=== PATIENT | male | born 2000 | race Caucasian/White ===

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

== ENCOUNTER 2018-02-12 09:55 | Inpatient (IN) | payer OTHER ==
[2018-02-12] MEDS ORDERED: Clindamycin 600 MG IVPREMIX(* 600 MG/50 ML SDV IV ONE (10:34)
[2018-02-12 10:43] LABS: Hematocrit 47 % (42-52); Hemoglobin 16.2 g/dl (14.0-18.0); Mean Corpuscular HGB Conc 35 g/dl (31-36); Mean Corpuscular Hemoglobin 31 pg (27-31); Mean Corpuscular Volume 89 fL (80-94); Mean Platelet Volume 8.4 um3 (7.4-10.4); Platelet Count 198 10^3/ul (150-450); Red Blood Count 5.24 10^6/ul (4.0-5.4); Red Cell Distribution Width 13 % (10.5-15); White Blood Count 17.2 10^3/ul (3.5-10.8)
--- NOTE | 2018-02-12 10:43 | ED ---
Upper Extremity Pain - HPI Summary HPI Summary: Patient is a 17-year-old male with a history of left olecranon bursitis with surrounding cellulitis. He is right-hand dominant and sustained left elbow cellulitis 6 weeks ago and was seen in the ED. He was started on Bactrim however, still needed to come in for one evening of antibiotics after it appeared to be spreading. He was seen by Dr. Bermudez, orthopedics. Today he arrives with right elbow pain and swelling, erythema and warmth. Low-grade fever last evening, but nothing on arrival today. He has been taking ibuprofen and Tylenol intermittently. Denies any chest pain, shortness of breath, sweats or chills. - History of Current Complaint Chief Complaint: EDRashSkinAbscess Stated Complaint: INFECTION ON RT ELBOW Time Seen by Provider: 02/12/18 09:59 Hx Obtained From: Patient Onset/Duration: Started Hours Ago Timing: Constant Severity Initially: Moderate Severity Currently: Moderate Pain Location: Elbow Character: Aching Aggravating Factor(s): Movement, Lifting, Flexion Alleviating Factor(s): Rest, Ice Related History: Similar Episode/Dx As - Left olecranon bursitis, Dominant Hand Right - Risk Factors Non-Orthopedic Risk Factor: Negative DVT Risk Factors: Negative Septic Arthritis Risk Factor: Negative Compartment Syndrome Risk Factors: Pain - Allergies/Home Medications Allergies/Adverse Reactions: Allergies Allergy/AdvReac Type Severity Reaction Status Date / Time No Known Allergies Allergy Verified 12/24/17 12:29 PMH/Surg Hx/FS Hx/Imm Hx Previously Healthy: Yes Endocrine/Hematology History: Denies: Hx Diabetes Cardiovascular History: Denies: Hx Hypertension Respiratory History: Denies: Hx Asthma Sensory History: Denies: Hx Contacts or Glasses, Hx Hearing Aid Opthamlomology History: Denies: Hx Contacts or Glasses - Immunization History Hx Pertussis Vaccination: No Immunizations Up to Date: Unable to Obtain/Confirm Infectious Disease History: No Infectious Disease History: Denies: Hx of Known/Suspected MRSA, Traveled Outside the [place] in Last 30 Days - Family History Known Family History: Positive: None - Social History Occupation: Unemployed, Student Alcohol Use: None Hx Substance Use: No Substance Use Type: Reports: None Hx Tobacco Use: No Smoking Status (MU): Never Smoked Tobacco Review of Systems Constitutional: Negative Negative: Fever, Chills, Fatigue, Skin Diaphoresis Eyes: Negative Cardiovascular: Negative Negative: Abdominal Pain, Vomiting, Diarrhea Genitourinary: Negative Positive: no symptoms reported, see HPI Positive: Arthralgia, Myalgia Skin: Negative Positive: Other - erythema and warmth with possible small bursa with no obvious effusion Neurological: Negative All Other Systems Reviewed And Are Negative: Yes Physical Exam Triage Information Reviewed: Yes Vital Signs On Initial Exam: Initial Vitals Temp Pulse Resp BP Pulse Ox 98.8 F 80 20 128/77 100 02/12/18 10:13 02/12/18 10:13 02/12/18 10:13 02/12/18 10:13 02/12/18 10:13 Vital Signs Reviewed: Yes Appearance: Positive: Well-Appearing, Well-Nourished Skin: Positive: Warm, Skin Color Reflects Adequate Perfusion, Other - Small bursa with no effusion Head/Face: Positive: Normal Head/Face Inspection Eyes: Positive: EOMI, EUGENIO Neck: Positive: Supple, No Lymphadenopathy Respiratory/Lung Sounds: Positive: Clear to Auscultation, Breath Sounds Present Cardiovascular: Positive: RRR, Pulses are Symmetrical in both Upper and Lower Extremities Musculoskeletal: Positive: Other - No limitations with flexion and extension of the elbow wrist or hand. 2+ radial pulse. Small bursa present. There is no evidence of an open wound, erythema and warmth surrounding the elbow Neurological: Positive: Speech Normal Psychiatric: Positive: Normal, Affect/Mood Appropriate AVPU Assessment: Alert Diagnostics - Vital Signs Vital Signs Temp Pulse Resp BP Pulse Ox 02/12/18 10:13 98.8 F 80 20 128/77 100 - Laboratory Result Diagrams: 02/12/18 10:29 02/12/18 10:29 Lab Statement: Any lab studies that have been ordered have been reviewed, and results considered in the medical decision making process. Course/Dx - Course Course Of Treatment: 2+ radial pulse. He is sensate to deep palpation, but not to light touch. There is no effusion, but a small bursa present. There is no open wound. He is able to flex and extend his tendons at the elbow wrist and hand. Labs obtained to assess for ESR, CRP and white count. Full range of motion without pain. I have offered to call Dr. Doherty to explain the new onset of symptoms. Clindamycin 600mg IV and in the ED. There is no streaking. He responded well to Bactrim upon last olecranon bursitis/cellulitis to the left elbow. I have called Dr. Jimenez who agrees to admit to her service. She is also recommended adding vancomycin. I have added vancomycin 1000 mg IV. Blood cultures obtained and are pending. Patient and swimming coach or instructor made aware and they' re okay with this plan. - Diagnoses Differential Diagnosis/HQI/PQRI: Positive: Bursitis Provider Diagnoses: Cellulitis of elbow, Olecranon bursitis, right elbow Discharge - Sign-Out/Discharge Documenting (check all that apply): Discharge/Admit/Transfer - Discharge Plan Condition: Stable Disposition: ADMITTED TO [facility] Referrals: [facility] [place] - Marcel SINGH [Primary Care Provider] - - Billing Disposition and Condition Condition: STABLE [place]position[place] [facility] [place] - Images Full Body (No Head): 1 - Erythema, warmth with small bursa
[2018-02-12 11:33] LABS: ABS Basophils 0.1 10^3/ul (0-0.2); ABS Eosinophils 0.1 10^3/ul (0-0.6); ABS Lymphocytes 0.9 10^3/ul (1.0-4.8); ABS Monocytes 1.1 10^3/ul (0-0.8); ABS Nucleated RBC 0 10^3/ul; Eosinophil % 0.4 % (0-6); Lymphocyte % 5.2 % (25-47); Nucleated Red Blood Cells % 0
[2018-02-12] MEDS ORDERED: Vancomycin(*) 1,000 MG in NS 0.9% 250 ML* 250 ML IVPB ONE (11:45)
[2018-02-12] MEDS ORDERED: oxyCODONE/Acetamin 5/325 MG* TAB PO PRN (12:50)
[2018-02-12] MEDS ORDERED: Morphine VIAL* 4 MG/ML VIAL (1 ml vial) IV PRN (12:50)
[2018-02-12] MEDS ORDERED: Ondansetron TAB* 4 MG PO PRN (12:57)
[2018-02-12] MEDS ORDERED: Ondansetron INJ* 2 MG/ML VIAL IV PRN (12:57)
[2018-02-12] MEDS ORDERED: diPHENhydraMINE IV* 50 MG/ML 1 ml VIAL (BENADRYL) IV PRN (12:57)
[2018-02-12] MEDS: Acetaminophen TAB* 325 MG PO PRN ×2 (14:16→19:57)
--- NOTE | 2018-02-12 14:36 | HP ---
H&P (Free Text) History and Physical: Attending Provider: Dr. 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 He had fever (tactile) and chills overnight, treated with tylenol. The patient denies trauma, injury, IVDU. His pain is a 1 /10 at rest and a 3-4/10 with full movement of the elbow. He denies any pain in the elbow joint itself. He believes the swelling and redness has worsened from last night. The patient was recent admitted 12/24/2017 with similar presentation, however to the L elbow at that time. He was treated conservatively with Bactrim, which was completed 01/04/2108. He did not have any further symptoms since that time and recent underwent a labral repair on the left shoulder at [facility] on 2017. Past Medical History: L shoulder labral repair L elbow olecranon bursitis, infecctious 12/2017, completed Bactrim 01/03/2018 Past Surgical History: 01/31/2018- Labral Repair L shoulder by DR. 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 Denies TOB, ETOH use, Denies IVDU or injections of any kind Review of Symptoms: + fever, chills last night starting at 9AM. Mild pain with movement of R elbow , recent surgery L shoulder. All other reviewed systems negative. Physical Exam: Vital Signs Temp 98.8 F 02/12/18 10:13 Pulse 80 02/12/18 10:13 Resp 20 02/12/18 10:13 BP 128/77 02/12/18 10:13 Pulse Ox 100 02/12/18 10:13 General: Well appearing, NAD, AO, resting comfortably in bed HEENT- normocephalic, atraumatic. MSK- R UE; R elbow with full pronation, supination, flexion, extension when compared to L. Good girp strength. Sensation intact and equal throughout R arm. No pain with R wrist, fingers, shoulder, no swelling/ erythema. R elbow with mild to moderate fluctuant swelling at olecranon with TTP, 4/10, with surrounds area of erythema measuring ~ 9cm x 5cm. radial, ulnar pulses 2+. Small, superficial abrasion noted posterior elbow, no drainage noted, healing well. LUE- Full ROm without pain of L elbow, no erythema, swelling, warmth. non- tender. L shoulder ROM not tested fully due to recent surgery, however non- tender to palpation, no pain with gentle pendulum motion, incision c/d/i. LE b/l- no TTP over ankle, hip, knee b/l with no swelling noted, full ROM. Diagnostic studies/ Lab Data: Laboratory Results - last 24 hr 02/12/18 02/12/18 10:29 10:29 WBC 17.2 H RBC 5.24 Hgb 16.2 Hct 47 MCV 89 MCH 31 MCHC 35 RDW 13 Plt Count 198 MPV 8.4 Neut % (Auto) 87.2 H Lymph % (Auto) 5.2 L Camp % (Auto) 6.6 Eos % (Auto) 0.4 Baso % (Auto) 0.6 Absolute Neuts (auto) 15.0 H Absolute Lymphs (auto) 0.9 L Absolute Monos (auto) 1.1 H Absolute Eos (auto) 0.1 Absolute Basos (auto) 0.1 Absolute Nucleated RBC 0 Nucleated RBC % 0 ESR 3 Sodium 137 L Potassium 4.1 Chloride 100 L Carbon Dioxide 28 Anion Gap 9 BUN 18 Creatinine 1.20 H Est GFR ( Amer) 100.3 Est GFR (Non-Af Amer) 78.0 BUN/Creatinine Ratio 15.0 Glucose 123 H Calcium 10.3 Total Bilirubin 3.80 H AST 23 ALT 18 Alkaline Phosphatase 58 C-Reactive Protein 21.47 H Total Protein 7.2 Albumin 5.0 Globulin 2.2 Albumin/Globulin Ratio 2.3 Assessment: Olecranon Bursitis, Infectious R elbow without known source Plan: - Admit for IV antibiotics- Currently Vancomycin, clindamycin. Call placed to ID. - Elevated Creatinine- IVF, continue to monitor. Improved from prior admission - Elevated Bilirubin- Will curbside hospitalists - Repeat labs, CRP in AM - Admit to Ortho under Dr. Doherty. - Pain Control- Percocet, Tylenol - Blood cultures taken, await results Active Medications Generic Name Dose Route Start Last Admin Trade Name Freq PRN Reason Stop Dose Admin Acetaminophen 650 mg 02/12/18 12:50 02/12/18 14:16 Tylenol Tab* PO 650 mg Q6H PRN Administration pain, fever Diphenhydramine HCl 25 mg 02/12/18 12:57 Benadryl Iv* IV Q6H PRN PRURITIS Dextrose/Sodium Chloride 1,000 mls @ 125 mls/hr 02/12/18 13:00 D5w 1/2 Ns 1000 Ml Bag* IV PER RATE MASON Morphine Sulfate 4 mg 02/12/18 12:50 Morphine Inj (Syringe)* IV Q2H PRN PAIN - BREAKTHROUGH Ondansetron HCl 4 mg 02/12/18 12:57 Zofran Inj* IV Q6H PRN NAUSEA Ondansetron HCl 4 mg 02/12/18 12:57 Zofran Tab* PO Q6H PRN nausea, vomiting Oxycodone/Acetaminophen 1 tab 02/12/18 12:50 Percocet 5/325 Tab* PO Q3H PRN PAIN - MODERATE TO SEVERE
[2018-02-12] MEDS: D5W 1/2 NS 1000 ML BAG* 1,000 ML IV SCH ×3 (14:45→23:10)
--- NOTE | 2018-02-12 16:24 | PN ---
Progress Note - Progress Note Date of Service: 02/12/18 Note: Pt seen an examined. Feeling feverish. Pain controlled. Will monitor closely. Please see full dictated H and P which is pending.
--- NOTE | 2018-02-12 21:25 | HP ---
CC: Dr. Marshall; [facility]* HISTORY AND PHYSICAL: DATE OF ADMISSION: 02/12/18 ATTENDING PHYSICIAN: Matthew Doherty MD CHIEF COMPLAINT: Right elbow pain. 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 He has a recent history approximately 6 weeks ago of left elbow cellulitis and olecranon bursitis, possible infected bursitis. He was admitted overnight due to increasing worsening symptoms. He is having same issue on the right side. He feels he has been having fevers, chills, significant pain. He has swelling and erythema. He was seen in the [employer] training room by the family medicine doctors, who were concerned that he has persistent pain and worsening symptoms. He also has a recent history of having a left arthroscopic labral repair done at another facility. He has been in the ER. He has had a dose of vanco as well as clindamycin. Currently, the pain is still quite uncomfortable for him. He has noticed a lot of swelling in the elbow, is having chills and now he is feeling febrile. He denies numbness or tingling. He does report fevers and chills. No catching or locking, but he has pain with range of motion in the elbow. PAST MEDICAL HISTORY: Negative. PAST SURGICAL HISTORY: Left shoulder arthroscopic labral repair. MEDICATIONS: Ibuprofen. He currently is taking vanco and clindamycin. ALLERGIES: NKDA. FAMILY HISTORY: Negative. SOCIAL HISTORY: He is right hand dominant. 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 He denies tobacco and denies alcohol. REVIEW OF SYSTEMS: A 14-point review of systems is significant for fevers, chills, pain with range of motion of the elbow, recent surgery in the left shoulder. No chest pain, shortness of breath. Remainder of systems are negative. PHYSICAL EXAMINATION GENERAL: He is in no acute distress. He is well developed, well nourished. He is alert and oriented x3. Pleasant mood and normal affect. Sitting comfortably in the bed. VITAL SIGNS: Temperature of 102.2, pulse of 99, oxygen 99% on room air, blood pressure is 121/66. HEENT: EOMI. CHEST: Clear to auscultation. HEART: Regular rate and rhythm. EXTREMITIES: Examination of the right elbow demonstrates marked area of erythema. He is able to flex and extend his elbow without much difficulty and some discomfort. He does have fluid collection about the posterior aspect of the olecranon. He is sensate to light touch grossly distally, brisk cap refill , 2+ radial pulse. Examination of the left shoulder demonstrates skin is intact. There is a well healed incision. There is no erythema or warmth. DIAGNOSTIC STUDIES/LAB DATA: Labs reviewed at the time of admission demonstrates white blood cell count of 17.2, hematocrit of 47, platelet count of 198. ESR of 3. Potassium 4.0, sodium of 137, chloride of 100, carbon dioxide 28, BUN of 18, creatinine of 1.2, glucose of 123, calcium 10.3. CRP is 21.47. ASSESSMENT AND PLAN: He has right elbow cellulitis and olecranon bursitis, possible infected bursitis. At this point, he is feeling he is having fevers and chills. He is uncomfortable and we did talk about possibly trying a course of 24 hours of oral antibiotics. He feels this is more severe than his previous infection that was 6 weeks ago on the other extremity. He does note that he has a history of bursitis on both elbows, although he has not been playing any sports in the last few weeks as he recently had labral repair. We will admit him overnight with IV antibiotics with vanco and clindamycin. We will discharge him if he is feeling comfortable tomorrow. The erythema might spread around the area and it may look worse, that he may feel better. He will complete a full course of oral Bactrim. As long as he responds to that we will continue treating him conservatively. If he starts to develop more joint related pain or the infection respond to the oral antibiotics, I will plan for draining versus I and D of the bursal collection. He verbalized understanding. We will follow up with him in the morning and see how he is feeling. [id number]/[facility] #: [id number] [facility]ERSITY HOSPITALPolly
[2018-02-13] MEDS: D5W 1/2 NS 1000 ML BAG* 1,000 ML IV SCH ×2 (07:13→20:06)
[2018-02-13] MEDS ORDERED: Vancomycin(*) 1,000 MG in NS 0.9% 250 ML* 250 ML IVPB ONE (11:00)
[2018-02-13] MEDS ORDERED: Vancomycin per Pharmacy* NOTE FOLLOW UP PRN (12:31)
[2018-02-13] MEDS: Clindamycin 600 MG IVPREMIX(* 600 MG/50 ML SDV IV SCH ×2 (12:56→18:33)
--- NOTE | 2018-02-13 14:22 | PN ---
Progress Note - Progress Note Date of Service: 02/13/18 SOAP: Subjective: []Patient seen at bedside. He is comfortable and in no pain currently. Objective: [] Laboratory Last Values WBC 12.2 10^3/ul (3.5-10.8) H 02/13/18 14:43 RBC 4.59 10^6/ul (4.0-5.4) 02/13/18 14:43 Hgb 14.3 g/dl (14.0-18.0) 02/13/18 14:43 Hct 41 % (42-52) L 02/13/18 14:43 MCV 90 fL (80-94) 02/13/18 14:43 MCH 31 pg (27-31) 02/13/18 14:43 MCHC 35 g/dl (31-36) 02/13/18 14:43 RDW 13 % (10.5-15) 02/13/18 14:43 Plt Count 159 10^3/ul (150-450) 02/13/18 14:43 MPV 8.4 um3 (7.4-10.4) 02/13/18 14:43 Neut % (Auto) 77.5 % (38-83) 02/13/18 14:43 Lymph % (Auto) 10.9 % (25-47) L 02/13/18 14:43 Dare % (Auto) 10.8 % (0-7) H 02/13/18 14:43 Eos % (Auto) 0.5 % (0-6) 02/13/18 14:43 Baso % (Auto) 0.3 % (0-2) 02/13/18 14:43 Absolute Neuts (auto) 9.4 10^3/ul (1.5-7.7) H 02/13/18 14:43 Absolute Lymphs (auto) 1.3 10^3/ul (1.0-4.8) 02/13/18 14:43 Absolute Monos (auto) 1.3 10^3/ul (0-0.8) H 02/13/18 14:43 Absolute Eos (auto) 0.1 10^3/ul (0-0.6) 02/13/18 14:43 Absolute Basos (auto) 0 10^ 3/ul (0-0.2) 02/13/18 14:43 Absolute Nucleated RBC 0 10^3/ul 02/13/18 14:43 Nucleated RBC % 0.1 02/13/18 14:43 ESR 3 mm/Hr (0-14) 02/12/18 10:29 Sodium 137 mmol/L (139-145) L 02/12/18 10:29 Potassium 4.1 mmol/L (3.5-5.0) 02/12/18 10:29 Chloride 100 mmol/L (101-111) L 02/12/18 10:29 Carbon Dioxide 28 mmol/L (22-32) 02/12/18 10:29 Anion Gap 9 mmol/L (2-11) 02/12/18 10:29 BUN 18 mg/dL (6-24) 02/12/18 10:29 Creatinine 1.20 mg/dL (0.67-1.17) H 02/12/18 10:29 Est GFR ( Amer) 100.3 (>60) 02/12/18 10:29 Est GFR (Non-Af Amer) 78.0 (>60) 02/12/18 10:29 BUN/Creatinine Ratio 15.0 (8-20) 02/12/18 10:29 Glucose 123 mg/dL (70-100) H 02/12/18 10:29 Calcium 10.3 mg/dL (8.6-10.3) 02/12/18 10:29 Total Bilirubin 3.80 mg/dL (0.2-1.0) H 02/12/18 10:29 Direct Bilirubin 0.60 mg/dL (0.03-0.18) H 02/12/18 10:29 Indirect Bilirubin 3.2 mg/dL (0.3-1.0) H 02/12/18 10:29 AST 23 U/L (13-39) 02/12/18 10:29 ALT 18 U/L (7-52) 02/12/18 10:29 Alkaline Phosphatase 58 U/L (34-104) 02/12/18 10:29 C-Reactive Protein 21.47 mg/L (< 5.00) H 02/12/18 10:29 Total Protein 7.2 g/dL (6.4-8.9) 02/12/18 10:29 Albumin 5.0 g/dL (3.2-5.2) 02/12/18 10:29 Globulin 2.2 g/dL (2-4) 02/12/18 10:29 Albumin/Globulin Ratio 2.3 (1-3) 02/12/18 10:29 Temp Pulse Resp BP Pulse Ox 99.3 F 78 18 115/73 97 02/13/18 11:15 02/13/18 11:15 02/13/18 11:15 02/13/18 11:15 02/13/18 11:15 General: Well appearing, NAD. Laying comfortably in bed RUE: R elbow erythematous with mild to moderate fluctuance about the right elbow and tenderness to palpation. No open or draining lesions. Full passive pronation, supination, flexion, extension. 5/5 strength. Sensation intact to light touch and equal throughout R arm and hand. Radial pulses 2+. Capillary refill less than two seconds distally. Assessment: []Right olecranon bursitis Plan: []IV vancomycin and IV clindamycin May saline lock when regular diet Continue pain control
[2018-02-13 15:05] LABS: ABS Basophils 0 10^3/ul (0-0.2); ABS Eosinophils 0.1 10^3/ul (0-0.6); ABS Lymphocytes 1.3 10^3/ul (1.0-4.8); ABS Monocytes 1.3 10^3/ul (0-0.8); ABS Neutrophils 9.4 10^3/ul (1.5-7.7); ABS Nucleated RBC 0 10^3/ul; Eosinophil % 0.5 % (0-6); Hematocrit 41 % (42-52); Hemoglobin 14.3 g/dl (14.0-18.0); Lymphocyte % 10.9 % (25-47); Mean Corpuscular HGB Conc 35 g/dl (31-36); Mean Corpuscular Hemoglobin 31 pg (27-31); Mean Corpuscular Volume 90 fL (80-94); Mean Platelet Volume 8.4 um3 (7.4-10.4); Nucleated Red Blood Cells % 0.1; Platelet Count 159 10^3/ul (150-450); Red Blood Count 4.59 10^6/ul (4.0-5.4); Red Cell Distribution Width 13 % (10.5-15); White Blood Count 12.2 10^3/ul (3.5-10.8)
[2018-02-13] MEDS: Vancomycin(*) 1,000 MG in NS 0.9% 250 ML* 250 ML IVPB SCH (20:26)
[2018-02-14] MEDS: Clindamycin 600 MG IVPREMIX(* 600 MG/50 ML SDV IV SCH ×3 (00:22→12:24)
[2018-02-14] MEDS: Vancomycin(*) 1,000 MG in NS 0.9% 250 ML* 250 ML IVPB SCH ×2 (04:20→13:05)
[2018-02-14 06:53] LABS: ABS Basophils 0 10^3/ul (0-0.2); ABS Eosinophils 0.2 10^3/ul (0-0.6); ABS Lymphocytes 1.9 10^3/ul (1.0-4.8); ABS Monocytes 1.2 10^3/ul (0-0.8); ABS Neutrophils 7.5 10^3/ul (1.5-7.7); ABS Nucleated RBC 0 10^3/ul; Eosinophil % 1.6 % (0-6); Hematocrit 43 % (42-52); Lymphocyte % 17.6 % (25-47); Mean Corpuscular HGB Conc 35 g/dl (31-36); Mean Corpuscular Hemoglobin 32 pg (27-31); Mean Corpuscular Volume 91 fL (80-94); Mean Platelet Volume 8.6 um3 (7.4-10.4); Nucleated Red Blood Cells % 0.1; Platelet Count 163 10^3/ul (150-450); Red Blood Count 4.74 10^6/ul (4.0-5.4); Red Cell Distribution Width 13 % (10.5-15); White Blood Count 10.8 10^3/ul (3.5-10.8)
--- NOTE | 2018-02-14 06:58 | PN ---
Progress Note - Progress Note Date of Service: 02/13/18 SOAP: Subjective: Pt seen and examined aroung 5 pm. Doing ok. Per nursing and patient. No abx ordered overnight. Still some discomfort. Labs improving. Afebrile. Pain controlled. Objective: NAD T 99.4 otherwise VSS R elbow with erythema, swelling decreased, able to flex/ext elbow with some discomfort at extension. SILT grossly distally. 2+ radial pulse. Assessment: HD#1 from R elbow olecranon bursitis with cellulitis Plan: Restarted ABX earlier this AM. Cont iv ABX no plans for surgery. likely d/c tomorrow on oral bactrim DS for 10 days
--- NOTE | 2018-02-14 07:00 | PN ---
Progress Note - Progress Note Date of Service: 02/14/18 SOAP: Subjective: Pt seen at 6:50 Feeling better. AF. responding well to abx Objective: Temp Pulse Resp BP Pulse Ox 99.0 F 80 16 114/54 98 02/14/18 03:20 02/14/18 03:20 02/14/18 03:20 02/14/18 03:20 02/14/18 03:20 NAD> R elbow, erythema spreading but swelling decreased. less pain with ROM> SILT grossly distally. 2+ radial pulse. 5/5 head of strategy Assessment: HD#2 responding to IV abx. Plan: discharge on PO abx Bactrim DS Will follow up next week activity as tolerated
[2018-02-14] MEDS: D5W 1/2 NS 1000 ML BAG* 1,000 ML IV SCH (08:39)
[2018-02-14 11:25] VITALS: BP 149/67
[2018-02-14] MEDS ORDERED: Vancomycin Trough Check NOTE FOLLOW UP ONE (11:30)
[2018-02-14 12:32] LABS: EGFR Non-African American 87.1 (>60)
[2018-02-14 12:59] LABS: Vancomycin Trough 7.5 mcg/mL
== END 2018-02-14 15:07 | disposition home or self-care (01) | DRG 558 ==
LOC: ED 09:55 → SSU 12:50
PROVIDERS: ADMIT Orthopaedic Surgery; ATTEND Orthopaedic Surgery
DX: M71.521 Other bursitis, not elsewhere classified, right elbow (principal); L03.113 Cellulitis of right upper limb; Z98.890 Other specified postprocedural states; R94.4 Abnormal results of kidney function studies; R74.8 Abnormal levels of other serum enzymes
CPT/HCPCS: 36415; 80053; 80202; 82247; 82248; 82565; 84520; 85025; 85652; 86140; 87040; 99283; A9270-GY; J3370

== ENCOUNTER 2019-09-15 02:54 | Emergency (ER) | payer OTHER ==
[2019-09-15 03:23] LABS: ABS Basophils 0.1 10^3/ul (0-0.2); ABS Eosinophils 0.1 10^3/ul (0-0.6); ABS Lymphocytes 2.6 10^3/ul (1.0-4.8); ABS Monocytes 0.6 10^3/ul (0-0.8); ABS Neutrophils 5.3 10^3/ul (1.5-7.7); Hematocrit 45 % (42-52); Hemoglobin 15.8 g/dL (14.0-18.0); Lymphocyte % 29.7 %; Mean Corpuscular HGB Conc 35 g/dL (31-36); Mean Corpuscular Hemoglobin 32 pg (27-31); Mean Corpuscular Volume 92 fL (80-94); Platelet Count 217 10^3/uL (150-450); Red Blood Count 4.94 10^6 /uL (4.18-5.48); Red Cell Distribution Width 13 % (10-15); White Blood Count 8.6 10^3/uL (3.5-10.8)
--- NOTE | 2019-09-15 03:26 | ED ---
Substance Abuse/Use - HPI Summary HPI Summary: LEVEL 5 CAVEAT Alcohol Intoxication This patient is a 19 year old M presenting to [facility] by EMS with a chief complaint of alcohol intoxication since prior to arrival. A friend said he might have hit his head. - History Of Current Complaint Chief Complaint: EDSubstanceAbuse Stated Complaint: ETOH PER EMS Time Seen by Provider: 09/15/19 02:56 Hx Obtained From: EMS Hx From Patient Unobtainable Due To: Other - Alcohol Intoxication Timing Of Abuse: Binge Use - Allergies/Home Medications Allergies/Adverse Reactions: Allergies Allergy/AdvReac Type Severity Reaction Status Date / Time No Known Allergies Allergy Verified 09/15/19 03:01 Home Medications: Home Medications NK [No Home Medications Reported] 09/15/19 [History Confirmed 09/15/19] PMH/Surg Hx/FS Hx/Imm Hx Previously Healthy: No - LEVEL 5 CAVEAT Alcohol Intoxication Endocrine/Hematology History: Denies: Hx Diabetes Cardiovascular History: Denies: Hx Hypertension, Hx Pacemaker/ICD Respiratory History: Denies: Hx Asthma History: Denies: Hx Renal Disease Musculoskeletal History: Reports: Hx Bursitis Sensory History: Denies: Hx Contacts or Glasses, Hx Hearing Aid Opthamlomology History: Denies: Hx Contacts or Glasses Psychiatric History: Denies: Hx Panic Disorder - Surgical History Surgery Procedure, Year, and Place: wisdom teeth extraction 2016. L SHOULDER labral repair 2018 Infectious Disease History: No Infectious Disease History: Denies: Hx of Known/Suspected MRSA, Traveled Outside the [place] in Last 30 Days - Family History Known Family History: Positive: Unknown - LEVEL 5 CAVEAT Alcohol Intoxication - Social History Alcohol Use: Occasionally Hx Substance Use: No Substance Use Type: Reports: None Hx Tobacco Use: No Smoking Status (MU): Never Smoked Tobacco Review of Systems All Other Systems Reviewed And Are Negative: No - Comments Additional Review of Systems Comments: LEVEL 5 CAVEAT Alcohol Intoxication Physical Exam - Summary Physical Exam Summary: General: Well-developed, Well-nourished male. No acute distress. Lethargic arousable to pain HEENT: Normocephalic, Atraumatic. Eyes: Conjuctiva normal, PERRL. Ears: TMs within normal limits. Nares: (-) discharge, (-) erythema. Oropharynx: Clear, mucous membranes moist, (-) exudates. Neck: Soft, FROM, (-) lymphadenopathy, (-) thyromegaly, (-) JVD. Cardiovascular: Normal sinus rhythm, (-) murmur. Lungs: Clear to auscultation bilaterally (-) wheezes, (-) rales, (-) rhonchi. Abdomen: Soft, non-tender, non-distended, (-) organomegaly, normal bowel sounds. Back: (-) CVA tenderness Extremities: No edema. Skin: Warm, dry, (-) rash. Neuro: no focal deficits. Psychiatric: Mood lethargic, affect normal. Triage Information Reviewed: Yes Vital Signs On Initial Exam: Initial Vitals Temp Pulse Resp BP Pulse Ox 97.7 F 84 16 94/74 99 09/15/19 02:57 09/15/19 02:57 09/15/19 02:57 09/15/19 02:57 09/15/19 02:57 Vital Signs Reviewed: Yes - [place] Coma Scale Best Eye Response: 3 - To Speech Best Motor Response: 2 - Extension (Decerebrate) Best Verbal Response: 5 - Oriented Coma Scale Total: 10 Procedures - Sedation Patient Received Moderate/Deep Sedation with Procedure: No Diagnostics - Vital Signs Vital Signs Temp Pulse Resp BP Pulse Ox 09/15/19 02:57 97.7 F 84 16 94/74 99 - Laboratory Result Diagrams: 09/15/19 03:11 09/15/19 03:11 Lab Statement: Any lab studies that have been ordered have been reviewed, and results considered in the medical decision making process. - Radiology Brain CT Radiology Interpretation Completed By: Radiologist Summary of Radiographic Findings: Brain CT reveals, per radiologist IMPRESSION: No acute intracranial abnormality. ED physician has reviewed this radiology report. Re-Evaluation - Re-Evaluation 1st re-eval Re-Evaluation Time: 09:21 Change: Improved Comment: Pt is awake, ambulating steadily, and states his girlfriend is on the way to pick him up. Course/Dx - Course Course Of Treatment: 19 year old M came by ambulance with acute alcohol intoxication. Pt is lethargic given IV and Zofran. Pt is sleeping. Pt will be signed out at end of shift pending sobriety. - Diagnoses Provider Diagnoses: Alcohol overdose Discharge ED - Sign-Out/Discharge Documenting (check all that apply): Sign-Out Patient Signing out patient TO: Gaurav Flores - at shift change pending sobriety - Discharge Plan Condition: Stable Disposition: HOME Patient Education Materials: Alcohol Intoxication (ED) Referrals: Jaison Dunn, [Primary Care Provider] - Additional Instructions: Please do not binge drink anymore. - Billing Disposition and Condition Condition: STABLE Disposition: Home - Attestation Statements Document Initiated by Scribe: Yes Documenting Scribe: Irasema Bergeron Provider For Whom Haydee is Documenting (Include Credential): Dr. María Sibley MD Scribe Attestation: Irasema Patino, scribed for Dr. María Sibley MD on 09/18/19 at 1919. Scribe Documentation Reviewed: Yes Provider Attestation: The documentation as recorded by the Irasema don accurately reflects the service I personally performed and the decisions made by me, Dr. María Sibley MD Status of Scribe Document: Viewed
[2019-09-15 03:36] LABS: Anion Gap 9 mmol/L (2-11); CO2 Carbon Dioxide 24 mmol/L (22-32); Calcium 9.4 mg/dL (8.6-10.3); Chloride 104 mmol/L (101-111); Potassium 3.5 mmol/L (3.5-5.0); Sodium 137 mmol/L (135-145)
[2019-09-15 03:42] LABS: ALT 38 U/L (7-52); AST 46 U/L (13-39); Albumin/Globulin Ratio 2.1 (1-3); Alkaline Phosphatase 53 U/L (34-104); BUN/Creatinine Ratio 18.9 (8-20); Blood Urea Nitrogen 25 mg/dL (6-24); EGFR African American 82.8 (>60); EGFR Non-African American 68.5 (>60); Globulin 2.4 g/dL (2-4); Glucose 107 mg/dL (70-100); Total Protein 7.4 g/dL (6.4-8.9)
[2019-09-15 04:20] LABS: Acetaminophen < 15 mcg/mL; Alcohol 307 mg/dL (<10); Salicylate < 2.50 mg/dL (<30)
--- NOTE | 2019-09-15 07:11 | ED ---
Progress - Progress Note Progress Note: Pt is a signout from Dr. Sibley at 0700 on 09/15/19 pending sobriety. As of 0700, pt is arousable, answering questions, but still intoxicated. He ambulated with a steady gait to the bathroom. Re-Evaluation - Re-Evaluation 1st re-eval Re-Evaluation Time: 09:21 Change: Improved Comment: Pt is awake, ambulating steadily, and states his girlfriend is on the way to pick him up. Course/Dx - Course Course Of Treatment: Patient is here with alcohol overdose. Patient signed out to myself by Dr. Sibley. Patient was monitored until he was sober and had a safe ride home with his Prof[place]. Patient was encouraged not to binge drink and future - Diagnoses Provider Diagnoses: Alcohol overdose Discharge ED - Sign-Out/Discharge Documenting (check all that apply): Patient Departure, Receiving Sign-Out Receiving patient FROM: María Sibley - Discharge Plan Condition: Stable Disposition: HOME Patient Education Materials: Alcohol Intoxication (ED) Referrals: Jaison Dunn, [Primary Care Provider] - Additional Instructions: Please do not binge drink anymore. - Billing Disposition and Condition Condition: STABLE Disposition: Home - Attestation Statements Document Initiated by Scribe: Yes Documenting Scribe: Danya Ward Provider For Whom Haydee is Documenting (Include Credential): Gaurav Flores MD. Scribe Attestation: aDnya Patino, scribed for Gaurav Flores MD. on 09/15/19 at 1232. Scribe Documentation Reviewed: Yes Provider Attestation: The documentation as recorded by the Danya don accurately reflects the service I personally performed and the decisions made by , Gaurav Flores MD. Status of Scribe Document: Viewed
[2019-09-15 09:54] VITALS: BP 126/86
== END 2019-09-15 09:26 | disposition home or self-care (01) ==
LOC: ED 02:54
DX: T51.91XA Toxic effect of unspecified alcohol, accidental (unintentional), initial encounter (principal); Y92.9 Unspecified place or not applicable
CPT/HCPCS: 36415; 70450; 80053; 80320; 80329; 83605; 85025; 99283; G0480